=== PATIENT | female | born 2000 | race Caucasian/White ===

== ENCOUNTER 2022-09-21 23:08 | Emergency (ER) | payer OTHER, SELFPAY ==
[2022-09-21 23:08] VITALS: BP 122/73; PULSE 92; RESP 15; TEMP 36.9; O2SAT 100
--- NOTE | 2022-09-21 23:20 | ECG_ITS ---
Measurements Intervals [place] Rate: 88 P: 50 SC: 144 QRS: 79 QRSD: 90 T: 38 QT: 348 QTc: 423 Interpretive Statements SINUS RHYTHM WITH OCCASIONAL VENTRICULAR PREMATURE COMPLEXES NO PREVIOUS ECG AVAILABLE FOR COMPARISON Electronically Signed On 09-22-2022 15:59:54 CDT by Amy Wilson M.D.
--- NOTE | 2022-09-21 23:45 | PC.NURSE ---
Triage notified nursing staff of visitors for the patient. Patient stated that she did not want visitors at this moment.
--- NOTE | 2022-09-21 23:50 | ED.GENADULT ---
HPI - General Adult General Chief complaint: Psychiatric Symptoms Stated complaint: SI Time Seen by Provider: 09/21/22 23:19 History of Present Illness HPI narrative: Patient a 22-year-old female who presents the emergency department with chief complaint of suicidal ideation. The patient reports that this evening she has been under a lot of stress and anxiety and reports that she made a comment that could have been interpreted as though she wanted to harm herself. The patient reports that she does not have an active plan to harm her self reports that she has never tried to harm herself before in the past reports that she has never been hospitalized. The patient reports that she has understanding of what she said could have been interpreted in a way that she wanted to harm herself but that was not her initial intention. Related Data Allergies Allergy/AdvReac Type Severity Reaction Status Date / Time No Known Allergies Allergy Unverified 12/05/14 07:09 Review of Systems Review of Systems: A 10 system review of systems was completed on the patient and is negative except for what is stated in the HPI. Nursing and ancillary documentation was reviewed. [facility] Social History Social History Substance use type: does not use Exam Narrative: GENERAL: Well-appearing, well-nourished, and in no acute distress. HEAD: Normocephalic, atraumatic. EYES: PERRLA and EOMI. ENT: Nares clear, no rhinorrhea or epistaxis. Mucous membranes moist. NECK: Supple. CHEST: Clear to auscultation. No respiratory distress. HEART: Regular rate and rhythm. No murmur heard. Normal peripheral pulses. ABDOMEN: Soft, nontender, nondistended, normal active bowel sounds. EXTREMITIES: Normal range of motion. No edema. SKIN: Warm, dry, no rash. NEURO: No focal deficits. Alert and oriented x3. PSYCH: Normal mood and affect. Denies suicidal or homicidal ideation Course Vital Signs Vital signs: Vital Signs Temperature 36.9 C 09/21/22 23:08 Pulse Rate 92 09/21/22 23:08 Respiratory Rate 15 09/21/22 23:08 Blood Pressure 122/73 09/21/22 23:08 Pulse Oximetry 100 09/21/22 23:08 Oxygen Delivery Room Air 09/21/22 23:08 Temperature 36.9 C 09/21/22 23:08 Pulse Rate 92 09/21/22 23:08 Respiratory Rate 15 09/21/22 23:08 Blood Pressure 122/73 09/21/22 23:08 Pulse Oximetry 100 09/21/22 23:08 Oxygen Delivery Room Air 09/21/22 23:08 Medical Decision Making MDM Narrative Medical decision making narrative: Differential diagnosis includes suicidal ideation, anxiety, depression Laboratory studies were obtained CBC was within normal limits electrolytes were also within normal limits EtOH was negative urine drug screen was negative influenza and COVID were negative Urinalysis showed 11-20 WBCs consistent with UTI Patient is medically cleared for psychiatric evaluation referral transport and admission Patient was seen by crisis in the emergency department and was able to contract for safety and was given community resources for mental health Vital Signs Vital Signs: Vital Signs Temperature 36.9 C 09/21/22 23:08 Pulse Rate 92 09/21/22 23:08 Respiratory Rate 15 09/21/22 23:08 Blood Pressure 122/73 09/21/22 23:08 Pulse Oximetry 100 09/21/22 23:08 Oxygen Delivery Room Air 09/21/22 23:08 Temperature 36.9 C 09/21/22 23:08 Pulse Rate 92 09/21/22 23:08 Respiratory Rate 15 09/21/22 23:08 Blood Pressure 122/73 09/21/22 23:08 Pulse Oximetry 100 09/21/22 23:08 Oxygen Delivery Room Air 09/21/22 23:08 Lab Data 09/21/22 23:39 09/21/22 23:39 Labs: Lab Results 09/21/22 09/21/22 09/21/22 Range/Units 23:39 23:39 23:39 WBC (4.5-10.0) K/mm3 RBC (4.2-5.4) M/mm3 Hgb (12.0-15.0) g/dL Hct (37.0-47.0) % MCV (80-100) fl MCH (26-34) pg MCHC (32-36) g/dl R
[2022-09-21 23:51] LABS: Mean Platelet Volume 9.8 fl (7.4-10.4); Red Cell Distribution Width 12.6 % (11.5-14.5)
[2022-09-21 23:54] LABS: Basophils Percent Auto 0.3 % (0.2-1.2); Eosinophils Percent Auto 0.7 % (0-4.4); Hematocrit 40.8 % (37.0-47.0); Hemoglobin 13.4 g/dL (12.0-15.0); Immature Granulocyte Absolute 0.01 K/mm3 (0.00-0.031); Immature Granulocyte Percent A 0.2 % (0-0.5); Lymphocytes Absolute Auto 1.78 K/mm3 (0.9-3.2); Lymphocytes Percent Auto 29.5 % (18.3-44.2); Mean Corpuscular HGB Conc 32.8 g/dl (32-36); Mean Corpuscular Hemoglobin 28.8 pg (26-34); Mean Corpuscular Volume 87.7 fl (80-100); Monocytes Absolute Auto 0.5 K/mm3 (0.1-0.6); Monocytes Percent Auto 8.4 % (2.6-8.5); Neutrophils Absolute Auto 3.7 K/mm3 (1.3-6.7); Neutrophils Percent Auto 60.9 % (45.5-73.1); Platelet Count Result 304 k/mm3 (150-375); Red Blood Count 4.65 M/mm3 (4.2-5.4)
[2022-09-22 00:01] LABS: Alanine Aminotransferase 17 U/L (6-35); Albumin Level 5.3 g/dL (3.5-5.1); Alkaline Phosphatase 76 U/L (38-126); Anion Gap 13 mmol/L (8-16); Aspartate Amino Transferase 24 U/L (14-36); Bilirubin,Total 0.9 mg/dL (0.2-1.3); Blood Urea Nitrogen 14 mg/dL (7-17); Calcium 9.3 mg/dL (8.4-10.2); Carbon Dioxide 24 mmol/L (22-30); Chloride 100 mmol/L (98-107); Estimated CRCL calculation 73 ml/min; Estimated Glomerular Filt Rate > 60; Glucose 117 mg/dL (65-110); Potassium 3.5 mmol/L (3.4-5.0); Sodium 137 mmol/L (137-145)
[2022-09-22 00:04] LABS: Acetaminophen < 10 ug/mL (10-30); Amphetamine Screen Urine Negative (Negative); Barbiturate Screen Urine Negative (Negative); Benzodiazepines Screen Urine Negative (Negative); Cannabinoid Screen Urine Negative (Negative); Cocaine Screen Urine Negative (Negative); Ethanol < 10 mg/dL (<10); Methadone Screen Urine Negative (Negative); Opiate Screen Urine Negative (Negative); Phencyclidine Screen Urine Negative (Negative); Salicylate < 1.0 mg/dL (2-20)
[2022-09-22 00:05] LABS: Appearance Urine Cloudy (Clear); Bacteria Urine 4+ /hpf; Bilirubin Urine Negative (Negative); Blood Urine Negative (Negative); Color Urine Yellow (Yellow); Glucose Urine UA Negative (Negative); Ketones Urine 2+ mg/dL (Negative); Leukocyte Esterase Ur Trace LEU/UL (Negative); Need Manual Microscopic Reviewed; Nitrate Urine Negative (Negative); Protein Urine Negative (Negative); Specific Grav Ur 1.017 (1.001-1.035); Squamous Epithelial Cell Urine Many /hpf (Few); Urobilinogen Urine 0.2 mg/dL (<2.0); pH Urine 5.5 (5.0-9.0)
[2022-09-22 00:07] LABS: Add Urine Microscopic? YES
[2022-09-22 00:41] LABS: Influenza A QL RT-PCR Negative (Negative); Influenza B QL RT-PCR Negative (Negative); SARS-CoV-2 RNA PCR Negative
[2022-09-22] MEDS: ONDANSETRON HCL ODT 4 MG TABLET PO (01:04)
== END 2022-09-22 04:11 | disposition home or self-care (01) ==
PROVIDERS: Emergency Provider Emergency Medicine
DX: F41.9 Anxiety disorder, unspecified (principal); N39.0 Urinary tract infection, site not specified; Z20.822 Contact with and (suspected) exposure to COVID-19; I49.3 Ventricular premature depolarization
CPT/HCPCS: 36415; 80053; 80307; 81001; 81025; 84443; 85025; 87086; 87636; 93005; 99283; A9270